=== PATIENT | male | born 1980 | race Caucasian/White ===

== ENCOUNTER 2017-03-22 13:33 | Emergency (ER) | payer MEDICAID, OTHER, SELFPAY ==
[~2017-03-22] VITALS: Ht 167.6 cm; Wt 63.9 kg
[2017-03-22 13:40] VITALS: BP 146/90
[2017-03-22] MEDS ORDERED: HYDROcodone/APAP 5/325 TABLET PO ONE (14:30)
[2017-03-22] MEDS ORDERED: HYDROcodone/APAP 5/325 TABLET ONE (14:31)
== END 2017-03-22 14:47 | disposition home or self-care (01) ==
LOC: ED 14:42
DX: S43.422A Sprain of left rotator cuff capsule, initial encounter (principal); F12.10 Cannabis abuse, uncomplicated; F17.200 Nicotine dependence, unspecified, uncomplicated; Y93.72 Activity, wrestling; Y92.89 Other specified places as the place of occurrence of the external cause; Y99.8 Other external cause status
CPT/HCPCS: 99284